=== PATIENT | female | born 1980 | race Two or more races ===

== ENCOUNTER → 2024-12-02 | Outpatient (CLI) | payer MEDICAID, SELFPAY ==
--- NOTE | 2024-12-02 11:15 | XR_ITS ---
Examination: Transvaginal ultrasound of the pelvis, complete Technique: Transvaginal sonographic images pelvis performed using jaramillo scale imaging Exam date and time: December 02, 2024 1143 hours INDICATIONS: Irregular heavy menses 6 months FINDINGS: Uterus 9.5 cm endometrial stripe 0.8 cm Uterine fundal mass 3.4 x 3.1 x 2.9 cm Right ovary 2.6 cm arterial flow to 6 mm x 7 mm follicular cyst Left ovary obscured by bowel gas IMPRESSION: Uterine fundal area of fibroid degeneration 3.4 x 3.1 x 2.9 cm, consider 6 month follow-up transvaginal pelvic sonography.
== END | disposition home or self-care (01) ==
LOC: CDIM 11:22
PROVIDERS: Referring Provider Internal Medicine; Visit Provider Internal Medicine
DX: D25.9 Leiomyoma of uterus, unspecified (principal)
CPT/HCPCS: 76830